=== PATIENT | male | born 1975 | race Caucasian/White ===

== ENCOUNTER 2017-12-27 02:15 | Emergency (ER) | payer OTHER, SELFPAY ==
[2017-12-27 02:18] VITALS: BP 137/90; PULSE 80; RESP 20; TEMP 36.3; O2SAT 100; BMI 24.9
[2017-12-27 02:21] VITALS: O2SAT 100
--- NOTE | 2017-12-27 02:30 | EKG12_ITS ---
Test Reason : STEMI Blood Pressure : / mmHG Vent. Rate : 075 BPM Atrial Rate : 075 BPM P-R Int : 184 ms QRS Dur : 096 ms QT Int : 382 ms P-R-T Axes : 065 -59 016 degrees QTc Int : 426 ms Normal sinus rhythm Left axis deviation Septal infarct , age undetermined Abnormal ECG Confirmed by LEONILA PRESTON, KEL ([id number]), newspaper managing editor CLAUDIO ROBLERO ([id number]) on 12/29/2017 12:51:29 PM Referred By: EVERETT Confirmed By:KEL KEEN MD
--- NOTE | 2017-12-27 02:30 | RAD_ITS ---
STUDY: X-RAY CHEST REASON FOR EXAM: Male, 42 years old. Chest pain TECHNIQUE: Frontal and lateral views of the chest were obtained. COMPARISON: November 13, 2017 FINDINGS: The lungs are hyperinflated. There are no focal airspace opacities. There is no demonstrated pleural abnormality. The cardiac silhouette is normal in size. The mediastinum and hilar regions are unremarkable. Normal visualized pulmonary arteries. Normal visualized aortic arch and descending thoracic aorta. Sternotomy wires are present. The visualized ribs, clavicles, and shoulders are unremarkable. There is no demonstrated abnormality of the visualized upper abdomen. RAD/Chest PA and Lateral IMPRESSION: No acute cardiopulmonary abnormalities or changes. Stable COPD. Electronically Signed: Sarah Sampson MD at 3:22 EST Tel Direct: [phone], Service support ,
[2017-12-27 02:34] VITALS: O2SAT 98
[2017-12-27 02:44] LABS: Absolute Lymphocyte Count 1.35 X10^3/ul (0.83-4.51); Basophil# 0.03 X10^3/uL; Basophil% 0.5 % (0-1); Eosinophil# 0.24 X10^3/uL; Eosinophils% 3.7 % (0-5); Hematocrit 40.8 % (40-54); Hemoglobin 13.5 g/dl (13.0-16.5); Lymphocyte # 1.35 X10^3/ul (4.0); Lymphocyte % 20.9 % (19-41); Mean Corp Hgb Conc 33.1 g/gl (32-36); Mean Corpuscular Hgb 30.7 pg (27.0-32.0); Mean Corpuscular Volume 92.7 fL (80-94); Mean Platelet Vol. 10.3 fl (6.2-12.0); Monocyte# 0.85 X10^3/uL; Monocyte% 13.2 % (0-10); Neutrophil # 3.96 X10^3/uL (2.7-7.7); Neutrophil % 61.4 % (47-70); POSITIVE COUNT NO; POSITIVE DIFFERENTIAL NO; POSITIVE MORPHOLOGY NO; Platelet Count 228 K/mm3 (150-450); RBC Distribution Width CV 13.2 % (11.6-14.6); RBC Distribution Width SD 44.6 fl (35.1-43.9); White Blood Count 6.5 K/mm3 (4.4-11.0)
[2017-12-27 03:08] LABS: Anion Gap 8 (5-15); BUN 12 mg/dL (7-18); BUN/Creat Ratio 13.1 RATIO (10-20); Calcium,Total 8.6 mg/dL (8.5-10.1); Chloride 106 mmol/L (98-107); Creatinine, Serum 0.92 mg/dL (0.70-1.30); EST Glomerular Filtration Rate 95 mL/min (>60); Est Glom Filt Rate - Afr Amer 115 mL/min (>60); Estimated Creatinine Clearance 99.13 ml/min; Glucose 103 mg/dL (74-106); Lipase 764 U/L (73-393); Potassium 3.9 mmol/L (3.5-5.1); Sodium Level 140 mmol/L (136-145)
--- NOTE | 2017-12-27 03:20 | ED.DCSUM_ITS ---
- ER Visit Summary Date of Service: 12/27/17 Chief Complaint: [] Chest pain History of Present Illness: The patient is a 42 M stated he has had some substernal chest pain since 12:00 at midnight intermittent heaviness. Mild dyspnea. He has been stressed out. He called the paramedics who brought him in. He was given aspirin nitroglycerin. 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 There is no real history of coronary artery disease per patient. No stents. He was admitted last month on the fifth with acute pancreatitis. His echocardiogram and troponin levels remain negative. His lipase came down and he was discharged. He states he is not a drinker. No history of gallbladder disease. Physical Examination: Vital signs reviewed General: Well-nourished well-developed Head: Normocephalic atraumatic Eyes: Pupils equal round and reactive to light extraocular movements intact ENT: TMs clear no hemotympanum no trauma Neck: Nontender full range of motion Cardiovascular: Regular rate rhythm no murmurs normal S1-S2 Respiratory: No distress clear to auscultation bilaterally chest nontender Abdomen: Soft nontender nondistended normal bowel sounds no masses Back: Nontender no CVA tenderness Extremities: Nontender active range of motion ?4 extremities no trauma Skin: Normal color no trauma Neuro alert oriented cranial nerves II through XII intact normal strength sensation reflexes Test Results: [] Emergency Department Course and Treatment: [] CBC chemistry normal troponin negative. EKG shows sinus at a rate of 75. Every [address] elevation V2. Prior unchanged. Chest x-ray shows nothing acute. Lipase level 764 up from 267. Patient remained stable here. Aspirin was given by the paramedics. Reevaluation his symptoms have resolved. He has no abdominal pain. I do not think this is cardiac in nature. He has no real history of coronary artery disease. Have a low suspicion for acute pancreatitis. He has had no pain in his epigastric region. Palpation of his epigastrium there is no pain. The patient will follow-up as an outpatient and was given referral to GI. I do not feel he needs to be readmitted. Treatment Plan: [] Disposition: [] Impression: [] Chest pain Elevated lipase level This note was generated with [employer] dictation software. It may contain incorrect words, spelling, and punctuation that were not noted in review of the chart prior to signing ED Disposition - Plan for ED Patient: Chief Complaint: Chest Pain Referrals: [facility] Doctor,Out of [Primary Care Provider] -
--- NOTE | 2017-12-27 03:21 | DCINST.ED_ITS ---
ED Disposition - Plan for ED Patient: Disposition: Home or Assisted Living Chief Complaint: Chest Pain Instructions: ED Chest Pain NonCardiac Referrals: [facility] Doctor,Out of [Primary Care Provider] - George Black MD [STAFF PHYSICIAN] -
[2017-12-27 03:28] VITALS: BP 132/71; PULSE 73; RESP 17; O2SAT 100
== END 2017-12-27 03:29 | disposition home or self-care (01) ==
PROVIDERS: Emergency Provider Emergency Medicine
DX: R07.2 Precordial pain (principal); R74.8 Abnormal levels of other serum enzymes; I25.10 Atherosclerotic heart disease of native coronary artery without angina pectoris; E03.9 Hypothyroidism, unspecified; Z79.899 Other long term (current) drug therapy; I25.2 Old myocardial infarction; Z87.19 Personal history of other diseases of the digestive system; Z95.2 Presence of prosthetic heart valve
CPT/HCPCS: 71046; 80048; 83690; 84484; 85025; 93005; 99285; J7030; A4216

== ENCOUNTER 2018-01-24 08:05 | Emergency (ER) | payer OTHER, SELFPAY ==
[2018-01-24 08:06] VITALS: BP 130/96; PULSE 91; RESP 16; TEMP 37.2; O2SAT 97; BMI 23.1
--- NOTE | 2018-01-24 08:21 | CT_ITS ---
STUDY: CT BRAIN WITHOUT CONTRAST REASON FOR EXAM: Male, 42 years old. Dizziness, nausea, visual disturbance. Trauma. Head injury yesterday. RADIATION DOSAGE (If Supplied By Facility): CTDIvol = ( 44.99 ) mGy, DLP = ( 745.49 ) mGycm TECHNIQUE: Transaxial CT imaging of the brain was performed without administration of intravenous contrast material. Individualized dose optimization techniques were used for this CT. COMPARISON: None. FINDINGS: Normal soft tissue structures. Normal calvarium. Normal size ventricles and extra-axial spaces for the patient's age. Normal white matter tracts of the cerebral hemispheres. Normal basal ganglia and thalami. Normal brainstem. Normal cerebellum. There is no intracranial hemorrhage. There are no findings of an acute ischemic infarction. There is mucoperiosteal inflammatory disease of the ethmoid sinuses consistent with moderate acute/chronic sinusitis. CT/Brain/Head without Contrast IMPRESSION: 1. Normal unenhanced CT scan of the brain. 2. Bony calvarium appears intact. 3. Moderate ethmoid sinusitis. Electronically Signed: Víctor David MD at 9:18 EDT Tel , Service support ,
--- NOTE | 2018-01-24 08:34 | ED.DCSUM_ITS ---
- ER Visit Summary Date of Service: 01/24/18 Chief Complaint: Head injury History of Present Illness: The patient is a 42 M who hit his head on a kitchen cabinet door yesterday. Patient was knocked to the ground. He did not lose consciousness but states he went to sleep shortly after and slept for 6 hours. He continues to have mild nausea, light sensitivity, and dizziness if he turns his head quickly. He reports his vision is not as crisp as normal. He has not taken anything for headache or pain. He is not on anticoagulants. Physical Examination: Vital signs are unremarkable. Patient's lying in a darkened room in no acute distress. Head neck examination reveals scalp tenderness of the left posterior parietal scalp. No obvious ecchymosis or erythema. There is no C-spine tenderness. Heart is regular rate and rhythm. Lung sounds are clear. Abdomen is soft nontender. Neuro exam is normal with good strength and sensation throughout. Test Results: CT scan of the head reveals normal brain with no evidence of fracture. Emergency Department Course and Treatment: Patient given IV fluids along with Toradol and Zofran. On repeat evaluation he does have some improvement in his headache and his nausea is resolved. Concussions and expected symptoms were discussed with him. He will be given a prescription for Zofran as needed. Treatment Plan: [] Disposition: Discharge Impression: Concussion This note was generated with [employer] dictation software. It may contain incorrect words, spelling, and punctuation that were not noted in review of the chart prior to signing ED Disposition - Plan for ED Patient: Chief Complaint: Head Injury Referrals: [facility] Doctor,Out of [Primary Care Provider] -
[2018-01-24] MEDS: Ondansetron 4 MG/2 ML Vial IV (08:36)
[2018-01-24] MEDS: Ketorolac 30 MG/ML Syringe IV (08:37)
--- NOTE | 2018-01-24 09:27 | ED.DEP ---
ED Disposition - Plan for ED Patient: Disposition: Home or Assisted Living Chief Complaint: Head Injury Instructions: ED Concussion Prescriptions: Ondansetron [Zofran Odt] 4 mg PO Q8H PRN PRN #10 tablet PRN Reason: Nausea Referrals: [facility],Out of [Primary Care Provider] - 1 Week
[2018-01-24 09:40] VITALS: BP 129/83; PULSE 71; RESP 16; O2SAT 100
== END 2018-01-24 09:41 | disposition home or self-care (01) ==
PROVIDERS: Emergency Provider Emergency Medicine
DX: S06.0X0A Concussion without loss of consciousness, initial encounter (principal); W22.8XXA Striking against or struck by other objects, initial encounter; Y93.9 Activity, unspecified; Y92.9 Unspecified place or not applicable; Y99.9 Unspecified external cause status; F32.9 Major depressive disorder, single episode, unspecified; F41.9 Anxiety disorder, unspecified; Z79.899 Other long term (current) drug therapy; I25.2 Old myocardial infarction; Z87.19 Personal history of other diseases of the digestive system; Z87.891 Personal history of nicotine dependence; Z95.2 Presence of prosthetic heart valve
CPT/HCPCS: 70450; 96374; 96375; 99284; J7040; A4216; J2405

== ENCOUNTER 2022-02-25 18:08 | Emergency (ER) | payer OTHER, SELFPAY ==
[2022-02-25 18:10] VITALS: BP 177/111; PULSE 107; RESP 18; TEMP 36.9; O2SAT 97; BMI 27.8
--- NOTE | 2022-02-25 19:43 | EKG12_ITS ---
Test Reason : CP Blood Pressure : / mmHG Vent. Rate : 094 BPM Atrial Rate : 094 BPM P-R Int : 172 ms QRS Dur : 094 ms QT Int : 344 ms P-R-T Axes : 073 -67 061 degrees QTc Int : 430 ms Normal sinus rhythm Biatrial enlargement Left axis deviation Septal infarct , age undetermined, cannot be excluded Abnormal ECG Confirmed by LEONILA PRESTON, KEL ([id number]), editor producer EUNICE PALACIO ([id number]) on 02/26/2022 9:02:33 AM Referred By: SILVERIO Confirmed By:KEL KEEN MD
--- NOTE | 2022-02-25 19:51 | RAD_ITS ---
History: Cough EXAMINATION/TECHNIQUE: XR Chest 1 View: Portable COMPARISON: December 27, 2017 FINDINGS: LINES/DEVICES: None. LUNGS: No consolidation, edema or effusion. No pneumothorax. MEDIASTINUM AND CARDIOVASCULAR STRUCTURES: Cardiac silhouette not enlarged. Central airways and mediastinal contour are unremarkable. BONES AND SOFT TISSUES: Unremarkable. RAD/Chest 1 View (Portable) IMPRESSION: No radiographic evidence of acute cardiopulmonary disease. No interval change. at 2008 Reported and signed by: Ralf Zamora MD Electronically Signed: Ralf Zamora MD at 20:07 EDT ,
[2022-02-25] MEDS: 0.9% Normal Saline 1,000 ML 1000 ML IV (19:59)
[2022-02-25 20:07] VITALS: PULSE 99; RESP 20; O2SAT 98
[2022-02-25] MEDS: Ipratropium/Albuterol Sulfate 3 ML AMPUL.NEB INHALATION (20:07)
[2022-02-25 20:20] LABS: Absolute Lymphocyte Count 1.12 X10^3/uL (0.83-4.51); Absolute Neutrophil Count 2.8 X10^3/uL (2.0-7.7); Basophil# 0.02 X10^3/uL; Basophil% 0.4 % (0-1); Eosinophil# 0.05 X10^3/uL; Hematocrit 48.6 % (40-54); Hemoglobin 16.5 g/dL (13.0-16.5); Lymphocyte # 1.12 X10^3/ul (0.83-4.51); Lymphocyte % 22.7 % (19-41); Mean Corpuscular Hgb 29.9 pg (27.0-32.0); Mean Corpuscular Volume 88.2 fL (80-94); Mean Platelet Vol. 10.6 fl (6.2-12.0); Monocyte# 0.92 X10^3/uL; Monocyte% 18.7 % (0-10); NRBC Flagged by Analyzer 0 % (0-5); Neutrophil % 56.8 % (47-70); Platelet Count 224 K/mm3 (150-450); RBC Distribution Width CV 12.1 % (11.6-14.6); RBC Distribution Width SD 39.8 fl (35.1-43.9); Red Blood Count 5.51 M/mm3 (4.6-6.2); White Blood Count 4.9 K/mm3 (4.4-11.0)
[2022-02-25 20:38] LABS: ALB/GLOB Ratio 0.9 RATIO (0.9-2.4); AST(SGOT) 19 U/L (15-37); Alanine Aminotransfer ALT/SGPT 27 U/L (16-61); Albumin, Serum 3.8 g/dL (3.2-5.0); Alkaline Phosphatase 142 U/L (45-117); Anion Gap 8 (5-15); BUN 17 mg/dL (7-18); BUN/Creat Ratio 14.7 RATIO (10-20); Chloride 105 mmol/L (98-107); Creatinine, Serum 1.16 mg/dL (0.70-1.30); EST Glomerular Filtration Rate 71 mL/min (>60); Est Glom Filt Rate - Afr Amer 86 mL/min (>60); Estimated Creatinine Clearance 75.34 ml/min; Globulin 4.2 g/dL (2.2-4.2); Glucose 107 mg/dL (74-106); Potassium 3.8 mmol/L (3.5-5.1); Sodium Level 137 mmol/L (136-145); Troponin-I HS 6 pg/mL (3.0-78.0)
--- NOTE | 2022-02-25 21:11 | EDS_ITS ---
HPI History of Present Illness Chief Complaint: Cough Informant: patient Onset/Context/Timing Onset: Days (4) Context: Gradual Onset Timing: Continuous Quality: Pressure, squeezing Location: Chest Worsened by: Coughing Relieved by: Mucinex, Aleve Associated Symptoms Associated Symptoms: Lightheadedness Narrative Narrative: Patient presents with a cough that has been getting worse over the past 4 days. Patient states he has also been having pressure and squeezing in his chest over this time. Patient states the pressure and squeezing is worse with coughing. Patient states he has been taking Mucinex and Aleve which has been helping. Patient states he feels lightheaded after coughing episodes. Patient admits to subjective fevers but states his temperature was normal when he took it. Patient admits to some rhinorrhea. Patient also admits to some nausea and vomiting. Patient denies any neck or back pain. [facility] Medical History COPD (chronic obstructive pulmonary disease) Heart disease SOB (shortness of breath) Thyroid disease Weight loss Home Medications levothyroxine 200 mcg PO DAILY 01/24/18 [History Last Taken Unknown] aspirin 81 mg tablet,delayed release 81 mg PO DAILY 01/11/19 [History Last Taken Unknown] esomeprazole magnesium [Nexium 24HR] 20 mg PO DAILY 02/25/22 [History Last Taken Unknown] Allergy/AdvReac Type Severity Reaction Status Date / Time coconut Allergy swelling Verified 02/25/22 18:14 of throat ANTI-ANXIETY MEDS AdvReac Nausea/Vom/ Uncoded 02/25/22 18:14 Diarrhea ANTIDEPRESSENTS AdvReac Other Uncoded 02/25/22 18:14 Family History (Updated 01/11/19 @ 13:10 by Shana Berg) Other Cancer Diabetes Heart disease Surgical History History of open heart surgery Social History Smoking Status: Former smoker alcohol intake: never ROS ROS ED Constitutional Constitutional ED: Reports fever(s) and subjective Eyes Eyes: Denies blurry vision or diplopia ENT ENT ED: Reports rhinorrhea; Denies sore throat Cardiovascular Cardiovascular: Reports chest pain; Denies palpitations Respiratory/Chest Respiratory/Chest: Reports cough and dyspnea Gastrointestinal Gastrointestinal: Reports nausea and vomiting Genitourinary Genitourinary ED: Denies dysuria or hematuria Musculoskeletal Musculoskeletal: Denies back pain or neck pain Integumentary Denies abscess or rash Neurologic Neurologic: Denies headache(s) or weakness Allergic/Immunologic Allergic/Immunologic ED: Denies mouth swelling or urticaria EXAM Physical Exam Const Vital Signs: 02/25/22 18:10 02/25/22 20:01 02/25/22 20:07 Temperature 98.4 F Temperature Source Temporal Pulse Rate 107 H 99 Respiratory Rate 18 20 H Respiratory Effort Normal Non-Labored Short of Breath Respiratory Depth Normal Shallow Respiratory Pattern Normal Normal Blood Pressure 177/111 H Blood Pressure Mean 133 Pulse Ox 97 98 Oxygen Delivery Method Room Air Room Air Positive well nourished and well developed General Appearance ED: well developed and NAD HEENT Reports moist mucous membranes Neck supple and no JVD Resp normal respiratory effort and clear to auscultation bilaterally Cardio regular rate, regular rhythm and no murmurs GI normal to inspection, nondistended, normoactive bowel sounds and non-tender Palpation: soft Extremity normal to inspection General Extremety ED: Negative for edema or tenderness General Extremity: Negative for edema Neuro oriented x3, CN's II-XII intact bilaterally and no sensory deficits noted Sensorium / Orientation: alert Motor Exam: strength 5/5 throughout Psych mental status grossly normal Skin no rashes or lesions noted MDM MDM MDM Narrative Medical decision making narrative: EKG was obtained. On my interpretation, it showed a normal sinus rhythm with a rate of 94. [place] interval, QRS interval, and QTc intervals were all normal. There is left axis deviation at -67. There are no acute ST or T wave changes. There is biatrial enlargement. Portable 1 view chest x-ray was obtained. On my interpretation, lung guadalupe are clear. There is normal cardiac silhouette. Bony thorax is normal. There is no acute process noted. Radiologist also interpreted the x-ray and agrees. CBC was within normal limits. Comprehensive metabolic profile was within normal limits. High- sensitivity troponin was normal. Patient was given a DuoNeb aerosol here. Patient felt better after this. COVID-19 rapid antigen was obtained and was negative. Influenza A and influenza B swabs were obtained and were negative. Patient was advised of his findings. Patient has a HEART score of 3. Patient was advised that this is low risk for acute cardiac event. Patient was advised that this most likely a viral illness. Patient was instructed to start with liquids and advance his diet as tolerated. Patient was instructed to follow-up with his primary care physician in 5 to 7 days. Patient understood and was agreeable with the plan. All questions were answered. Lab Data Labs: Laboratory Results - last 24 hr 02/25/22 02/25/22 20:00 20:00 WBC 4.9 RBC 5.51 Hgb 16.5 Hct 48.6 MCV 88.2 MCH 29.9 MCHC 34.0 RDW Std Deviation 39.8 RDW Coeff of Arsh 12.1 Plt Count 224 MPV 10.6 Immature Gran % (Auto) 0.400 Neut % (Auto) 56.8 Lymph % (Auto) 22.7 [place] % (Auto) 18.7 H Eos % (Auto) 1.0 Baso % (Auto) 0.4 Absolute Neuts (auto) 2.8 Absolute Lymphs (auto) 1.12 Nucleated RBC % 0 Sodium 137 Potassium 3.8 Chloride 105 Carbon Dioxide 24.0 Anion Gap 8 BUN 17 Creatinine 1.16 Estim Creat Clear Calc 75.34 Est GFR (MDRD) Af Amer 86 Est GFR (MDRD) Non-Af 71 BUN/Creatinine Ratio 14.7 Glucose 107 H Calcium 9.0 Total Bilirubin 0.40 AST 19 ALT 27 Alkaline Phosphatase 142 H Troponin I High Sens 6 Total Protein 8.0 Albumin 3.8 Globulin 4.2 Albumin/Globulin Ratio 0.9 Radiography Chest X-Ray - ED: 1 View, Read by ED Physician, Read by Radiologist and No Acute Disease Diagnostic Testing: Clinical Impression(s) from Imaging Studies Chest X-Ray 02/25/22 19:51 IMPRESSION: No radiographic evidence of acute cardiopulmonary disease. No interval change. at 2008 Reported and signed by: Ralf Zamora MD Electronically Signed: Ralf Zamora MD at 20:07 EDT , EKG Initial EKG: Attestation: I personally reviewed and interpreted this EKG as follows: Interpretation: Sinus Rhythm (94) and No Acute Injury Pattern Comments: Left axis deviation, biatrial enlargement Prior EKG tracings: available for review Prior: Unchanged (12/27/2017) Discharge Plan Triage Chief Complaint: Cough ED Provider: Rocael Calle Dx/Rx/DC Orders Clinical Impression: Viral illness, Status post aortic valve replacement with bioprosthetic valve Instructions: ED Viral Syndrome (Adult) Prescriptions: No Action aspirin 81 mg tablet,delayed release (DR/EC) 81 mg PO DAILY RF: 0 levothyroxine 100 MCG tablet 200 mcg PO DAILY RF: 0 esomeprazole magnesium [Nexium 24HR] 20 mg Capsule,Delayed Release(Dr/Ec) 20 mg PO DAILY RF: 0 Primary Care Provider: Lissa Marcial NP Referrals: Lissa Marcial NP, [employer] [Primary Care Provider] - 5-7 Days Disposition Disposition: Home, Self Care
[2022-02-25 21:29] VITALS: PULSE 90; RESP 18
== END 2022-02-25 21:33 | disposition home or self-care (01) ==
PROVIDERS: Emergency Provider Emergency Medicine; PCP Nurse Practitioner Family; Visit Provider Emergency Medicine
DX: B34.9 Viral infection, unspecified (principal); J44.9 Chronic obstructive pulmonary disease, unspecified; Z95.3 Presence of xenogenic heart valve; Z20.822 Contact with and (suspected) exposure to COVID-19; R11.2 Nausea with vomiting, unspecified; E07.9 Disorder of thyroid, unspecified; Z79.890 Hormone replacement therapy; Z79.82 Long term (current) use of aspirin; Z79.899 Other long term (current) drug therapy; Z87.891 Personal history of nicotine dependence
CPT/HCPCS: 71045; 80053; 84484; 85025; 87428; 93005; 94640; 96360; 99251; 99283; J7030; A4216; G0463